=== PATIENT | female | born 2000 | race Caucasian/White ===

== ENCOUNTER → 2021-01-13 11:09 | Outpatient (BNVA) | payer OTHER, BC, SELFPAY | PROVIDERS: Family Provider Nurse Practitioner Family; PCP Registered Nurse; Visit Provider Registered Nurse | DX: D50.9 Iron deficiency anemia, unspecified (principal); R04.0 Epistaxis | CPT/HCPCS: 80053; 85025 ==

== ENCOUNTER → 2021-10-07 14:00 | Outpatient (BNVA) | payer OTHER, BC, SELFPAY | PROVIDERS: Family Provider Nurse Practitioner Family; PCP Registered Nurse; Visit Provider Registered Nurse | DX: Z20.822 Contact with and (suspected) exposure to COVID-19 (principal) | CPT/HCPCS: 87635 ==